=== PATIENT | female | born 1940 | race Two or more races ===

== ENCOUNTER → 2025-05-17 | Outpatient (CLI) | payer MEDICARE, MEDICAID, SELFPAY ==
--- NOTE | 2025-05-17 13:40 | XR_ITS ---
Examination: Bone densitometry Date and time of exam:May 17, 2025 1408 hours INDICATIONS: Menopause age 51, personal history osteopenia Technique: Lumbar spine and hip total bone mineralization values of an calculated. Peak reference and age match control results have been displayed. Findings: Lumbar spine total bone mineralization is0.882 gm/cm2. This is 1.5 standard deviations below peak reference. Hip total bone mineralization is 0.771 gm/cm2 This is 1.4 standard deviations below peak reference. Impression: There is osteopenia based on lumbar spine measurements. There is osteopenia based on hip measurements Lumbar mineralization is increase 10.1% compared with July 30, 2017 Hip mineralization is increase 0.9% compared with July 30, 2017
== END | disposition home or self-care (01) ==
PROVIDERS: PCP Physician Assistant; Referring Provider Physician Assistant; Visit Provider Physician Assistant
DX: M85.89 Other specified disorders of bone density and structure, multiple sites (principal)
CPT/HCPCS: 77080